=== PATIENT | male | born 1995 | race Caucasian/White ===

== ENCOUNTER 2018-09-04 20:13 | Emergency (ER) | payer OTHER ==
[~2018-09-04] VITALS: Ht 188 cm; Wt 75.5 kg
[2018-09-04 20:27] VITALS: BP 140/82; TEMP 98.4
[2018-09-04 22:25] VITALS: PULSE 63
== END 2018-09-04 22:25 | disposition home or self-care (01) ==
LOC: COL.ER 20:13
DX: T16.1XXA Foreign body in right ear, initial encounter (principal); J45.909 Unspecified asthma, uncomplicated